=== PATIENT | male | born 1975 | race Two or more races ===

== ENCOUNTER 2017-10-30 17:40 | Emergency (ER) | payer MEDICAID ==
[~2017-10-30] VITALS: Ht 167.6 cm; Wt 74.8 kg
[2017-10-30 17:51] VITALS: BP 134/81
[2017-10-30] MEDS ORDERED: HYDROCODONE/APAP 5/325MG 1 EACH TABLET ONE (19:16)
[2017-10-30] MEDS ORDERED: IBUPROFEN 600 MG TABLET PO ONE ×2 (19:16→19:30)
[2017-10-30] MEDS ORDERED: HYDROCODONE/APAP 5/325MG 1 EACH TABLET PO ONE (19:30)
== END 2017-10-30 20:25 | disposition home or self-care (01) ==
LOC: ER 17:48
DX: S76.011A Strain of muscle, fascia and tendon of right hip, initial encounter (principal); S80.11XA Contusion of right lower leg, initial encounter; V12.4XXA Pedal cycle driver injured in collision with two- or three-wheeled motor vehicle in traffic accident, initial encounter; Y93.55 Activity, bike riding; Y92.413 State road as the place of occurrence of the external cause; Y99.8 Other external cause status
CPT/HCPCS: 73502; 73590-TC; A4606; A6403; Z7610